=== PATIENT | male | born 1995 | race Caucasian/White ===

== ENCOUNTER 2023-10-27 19:26 | Inpatient (IN) | payer SELFPAY ==
[2023-10-27 19:27] VITALS: BP 139/70; PULSE 96; RESP 18; TEMP 36.4; O2SAT 100; BMI 23.2
[2023-10-27 20:27] VITALS: RESP 18
[2023-10-27 20:30] LABS: Absolute Lymphocyte Count 3.48 X10^3/uL (0.83-4.51); Absolute Neutrophil Count 5.4 X10^3/uL (2.0-7.7); Basophil# 0.04 X10^3/uL; Basophil% 0.4 % (0-1); Eosinophil# 0.09 X10^3/uL; Eosinophils% 0.9 % (0-5); Hematocrit 44.4 % (40-54); Hemoglobin 14.9 g/dL (13.0-16.5); Lymphocyte # 3.48 X10^3/ul (0.83-4.51); Lymphocyte % 36.2 % (19-41); Mean Corp Hgb Conc 33.6 g/dL (32-36); Mean Corpuscular Hgb 32.1 pg (27.0-32.0); Mean Corpuscular Volume 95.7 fL (80-94); Mean Platelet Vol. 9.4 fl (6.2-12.0); Monocyte# 0.55 X10^3/uL; Monocyte% 5.7 % (0-10); NRBC Flagged by Analyzer 0 % (0-5); Neutrophil # 5.39 X10^3/uL (2.7-7.7); Neutrophil % 56.2 % (47-70); Platelet Count 229 K/mm3 (150-450); RBC Distribution Width CV 12.4 % (11.6-14.6); RBC Distribution Width SD 43.7 fl (35.1-43.9); Red Blood Count 4.64 M/mm3 (4.6-6.2); White Blood Count 9.6 K/mm3 (4.4-11.0)
--- NOTE | 2023-10-27 20:36 | EDS_ITS ---
HPI History of Present Illness Chief Complaint: Substance Abuse Informant: patient and friend Narrative Narrative: 28-year-old male presenting to the emergency room requesting detox from alcohol. Patient states that he previously had addiction to opiates. He states that for several years he is replaced that addiction with developing addiction for alcohol. His main drink of choice is beer but will supplement this with shots of hard liquor as needed. He states that he be has begun to notice withdrawal symptoms towards the end of the workday. He drinks till he passes out at night. Personal relationships have become strained. He has no pending legal issues. He states that while in the active state of opiate addiction he had reported seizures but is not treated for epilepsy. He states that he is tired of drinking and the way it makes him feel in the problems that it causes and he is voluntarily coming to the hospital looking for alcohol detoxification. The last drink was about 1 hour ago. [facility] Medical History Heroin addiction Home Medications ?Medication ?Instructions ?Recorded ?Last Taken ?Type NK 10/27/23 Unknown History Allergy/AdvReac Type Severity Reaction Status Date / Time No Known Allergies Allergy Verified 10/27/23 19:27 Social History Smoking Status: Current every day smoker tobacco type: cigarettes ROS ROS ED ROS Narrative Generalized fatigue Constitutional Constitutional ED: Denies chills, fever(s) or weight loss Eyes Eyes: Denies change in vision or diplopia ENT ENT ED: Denies ear pain, rhinorrhea or sore throat Cardiovascular Cardiovascular: Denies chest pain, orthopnea, palpitations or racing heartbeat Respiratory/Chest Respiratory/Chest: Denies cough, dyspnea or orthopnea Gastrointestinal Gastrointestinal: Denies abdominal pain, diarrhea, nausea or vomiting Genitourinary Genitourinary ED: Denies dysuria, hematuria or urinary frequency Musculoskeletal Musculoskeletal: Denies arthralgias or myalgias Integumentary Denies abscess or rash Neurologic Neurologic: Denies headache(s) or weakness Psychiatric Psychiatric: Denies anxiety, depression, suicidal ideation or suicidal thoughts Endocrine Endocrinology: Denies polydipsia, polyphagia or polyuria Allergic/Immunologic Allergic/Immunologic ED: Denies mouth swelling, tongue swelling or urticaria EXAM Physical Exam Const Vital Signs: 10/27/23 19:27 10/27/23 20:27 Temperature 97.6 F L Temperature Source Temporal Pulse Rate 96 Respiratory Rate 18 18 Blood Pressure 139/70 H Blood Pressure Mean 93 Pulse Ox 100 Oxygen Delivery Method Room Air Room Air Positive well nourished and well developed Constitutional Narrative: Smell of alcohol from the patient mouth General Appearance ED: well developed HEENT Reports normocephalic, head/scalp atraumatic and moist mucous membranes Eyes PERRL and EOMs intact bilaterally Neck no lymphadenopathy, supple and no JVD Resp normal respiratory effort and clear to auscultation bilaterally Cardio regular rate, regular rhythm and no murmurs GI normal to inspection, nondistended, normoactive bowel sounds and non-tender Palpation: soft Back/Spine no CVA tenderness and normal ROM Extremity normal to inspection General Extremety ED: Negative for edema General Extremity: Negative for edema Neuro oriented x3 and CN's II-XII intact bilaterally Sensorium / Orientation: alert Motor Exam: strength 5/5 throughout Psych mental status grossly normal Mood & Affect: Negative for depressed or tearful Skin no rashes or lesions noted and no wounds MDM MDM MDM Narrative Medical decision making narrative: Differential diagnosis includes but not limited to electrolyte disturbance dehydration liver dysfunction coagulopathy alcohol intoxication alcohol abuse withdrawal/ If the patient is willing to agree to the terms of the ramp program I will speak with the hospitalist. Addiction labs were obtained. These were reviewed. White count 9.6 hemoglobin 14.9 platelet count 229. Alcohol level is 171. Normal lipase normal liver enzymes. History & Record Review Discussion w/independent historian: Patient Lab Data Attestation: I reviewed the patient's lab results. Labs: Laboratory Results - last 24 hr 10/27/23 19:57 WBC 9.6 RBC 4.64 Hgb 14.9 Hct 44.4 MCV 95.7 H MCH 32.1 H MCHC 33.6 RDW Std Deviation 43.7 RDW Coeff of Bossman 12.4 Plt Count 229 MPV 9.4 Immature Gran % (Auto) 0.600 Neut % (Auto) 56.2 Lymph % (Auto) 36.2 [place] % (Auto) 5.7 Eos % (Auto) 0.9 Baso % (Auto) 0.4 Absolute Neuts (auto) 5.4 Absolute Lymphs (auto) 3.48 Nucleated RBC % 0 PT 13.1 INR 1.0 APTT 27.5 Sodium 143 Potassium 3.6 Chloride 111 H Carbon Dioxide 28.0 Anion Gap 4 L BUN 5 L Creatinine 0.73 Estim Creat Clear Calc 149.31 Est GFR (MDRD) Af Amer 162 Est GFR (MDRD) Non-Af 134 BUN/Creatinine Ratio 6.8 L Glucose 74 Calcium 9.0 Magnesium 2.4 Total Bilirubin 0.50 Direct Bilirubin 0.14 AST 29 ALT 48 Alkaline Phosphatase 70 Total Protein 6.9 Albumin 3.7 Globulin 3.2 Lipase 25 Ethyl Alcohol 171.0 Management Discussion w/another healthcare provider: Hospitalist Discharge Plan Dx/Rx/DC Orders Clinical Impression: Alcohol abuse, Cigarette smoker Disposition Disposition: Acute Care Hospital [facility]
[2023-10-27 20:38] LABS: Prothrombin Time (Protime)PT. 13.1 SECONDS (11.7-14.9)
[2023-10-27 20:39] LABS: Partial Thromboplast Time 27.5 Seconds (24.1-36.2)
[2023-10-27 20:46] LABS: AST(SGOT) 29 U/L (15-37); Alanine Aminotransfer ALT/SGPT 48 U/L (16-61); Albumin, Serum 3.7 g/dL (3.2-5.0); Alkaline Phosphatase 70 U/L (45-117); Anion Gap 4 (5-15); BUN 5 mg/dL (7-18); BUN/Creat Ratio 6.8 RATIO (10-20); Bilirubin, Direct 0.14 mg/dL (0.00-0.30); Chloride 111 mmol/L (98-107); Creatinine, Serum 0.73 mg/dL (0.70-1.30); EST Glomerular Filtration Rate 134 mL/min (>60); Est Glom Filt Rate - Afr Amer 162 mL/min (>60); Estimated Creatinine Clearance 149.31 ml/min; Globulin 3.2 g/dL (2.2-4.2); Glucose 74 mg/dL (74-106); Lipase 25 U/L (13-75); Magnesium 2.4 mg/dL (1.6-2.6); Potassium 3.6 mmol/L (3.5-5.1); Protein, Total 6.9 g/dL (6.4-8.2); Sodium Level 143 mmol/L (136-145)
--- NOTE | 2023-10-27 20:57 | PCM.HP.STD ---
[facility] - General General Date of Admission: 10/27/23 Date of Service: 10/27/23 Chief Complaint: Wants Help with EtOH Detox. HPI Narrative VISH MAX, is a 28 M with a past medical history of Tobacco Abuse, history of Heroin Abuse (2015); with previous seizure activity attributed to severe opiate withdrawal a few years ago with subsequent transition to Chronic EtOH Abuse; with patient admitting to drinking ~12 beers in addition to multiple shots of hard liquor daily who presents to [facility] ER complaining of wanting help with EtOH Detox. Mr. Max reports his symptoms began approximately one hour prior to admission after he took his last drink. He went on to state that he has begun to notice withdrawal symptoms at the end of the workday as he has routinely been drinking until he passes out every night. He also admits that this has strained his personal relationships but he denies active legal trouble. He states he is tired of drinking and the way it makes him feel so he came in to seek help to quit with his significant other supportively at the bedside. He denies associated fever, chills, nausea, vomiting, diarrhea, chest pain or SOB but he does admit to fatigue and malaise. In the ER he was noted to have MARY ALICE of 171 mg/dL present on admission consistent with Acute EtOH Intoxication with impending EtOH Withdrawal in the setting of Chronic EtOH Abuse and he was then admitted to the general medical floor for treatment under the EtOH detox protocol for a stay that is expected to extend beyond 2 midnights. [facility] Medical History (Updated 10/28/23 @ 02:[address] Santosh Valenzuela DO) Heroin addiction Home Medications ?Medication ?Instructions ?Recorded ?Last Taken ?Type NK 10/27/23 Unknown History Allergy/AdvReac Type Severity Reaction Status Date / Time No Known Allergies Allergy Verified 10/27/23 19:27 Social History Smoking Status: Current every day smoker tobacco type: cigarettes ROS ROS Narrative Review of systems: Constitutional: Patient denies fever, chills or weight loss. Eyes: Patient denies changes in vision or discharge from eyes. ENT: Patient denies runny nose, sore throat or ear pain. CV: Patient denies chest pain, palpitations or heart racing. Resp: Patient denies SOB or cough. GI: Patient denies abdominal pain, nausea, vomiting, diarrhea or constipation. : Patient denies dysuria, hematuria or urinary hesitancy. MSK: Patient denies arthralgias or myalgias. Skin: Patient denies rash, abscess or jaundice. Psych: Patient denies symptoms of uncontrolled depression or anxiety. Neuro: Patient denies headache, paresthesias or focal neurologic weakness. Allergy: Patient denies lip swelling, tongue swelling or urticaria. Endocrine: Patient denies polyuria, polydipsia or polyphagia. Hematology: Patient denies easy bleeding or easy bruisability. 14 point ROS otherwise negative except for positives noted above in HPI. Vital Signs Vital Signs Vital Signs: 10/27/23 19:27 10/27/23 20:27 Temperature 97.6 F L Temperature Source Temporal Pulse Rate 96 Respiratory Rate 18 18 Blood Pressure 139/70 H Blood Pressure Mean 93 Pulse Ox 100 Oxygen Delivery Method Room Air Room Air Weight Weight: 157 lb 3.033 oz Body Mass Index (BMI) 23.2 Physical Exam Const alert, oriented x3, no apparent distress, average body habitus and healthy appearing General Appearance: cooperative HEENT normocephalic, head/scalp atraumatic, hearing grossly normal bilaterally and moist oral mucous membranes Eyes PERRL and EOMs intact bilaterally Eyes Narrative: Sclerae mildly injected. Neck no lymphadenopathy and supple Resp normal respiratory effort, no retractions, no use of accessory muscles and clear to auscultation bilaterally Cardio regular rate and regular rhythm GI normal to inspection, nondistended, normoactive bowel sounds, soft to palpation, non-tender and non-distended Extremity normal to inspection, full ROM and no clubbing, cyanosis or edema Skin Skin Narrative: Patient has no evidence of jaundice, rash or abscess. Neuro oriented x3, CN's II-XII intact bilaterally, moves all extremities and no focal motor deficits Sensorium / Orientation: awake, alert, oriented to person, oriented to place and oriented to time Speech: speech normal Psych affect normal Results Medical Records Data Attestation: I reviewed the patient's medical records Lab / Micro Data Attestation: I reviewed the patient's lab results. 10/27/23 19:57 10/27/23 19:57 Labs: Laboratory Results - last 24 hr 10/27/23 19:57: WBC 9.6, RBC 4.64, Hgb 14.9, Hct 44.4, MCV 95.7 H, MCH 32.1 H, MCHC 33.6, RDW Std Deviation 43.7, RDW Coeff of Bossman 12.4, Plt Count 229, MPV 9.4, Immature Gran % (Auto) 0.600, Neut % (Auto) 56.2, Lymph % (Auto) 36.2, [place] % (Auto) 5.7, Eos % (Auto) 0.9, Baso % (Auto) 0.4, Absolute Neuts (auto) 5.4, Absolute Lymphs (auto) 3.48, Nucleated RBC % 0, PT 13.1, INR 1.0, APTT 27.5, Sodium 143, Potassium 3.6, Chloride 111 H, Carbon Dioxide 28.0, Anion Gap 4 L, BUN 5 L, Creatinine 0.73, Estim Creat Clear Calc 149.31, Est GFR (MDRD) Af Amer 162, Est GFR (MDRD) Non-Af 134, BUN/Creatinine Ratio 6.8 L, Glucose 74, Calcium 9.0, Magnesium 2.4, Total Bilirubin 0.50, Direct Bilirubin 0.14, AST 29, ALT 48, Alkaline Phosphatase 70, Total Protein 6.9, Albumin 3.7, Globulin 3.2, Lipase 25, Ethyl Alcohol 171.0 Assessment & Plan Assessment/Plan (1) Alcohol intoxication: QUALIFIERS: Complication of substance-induced condition: uncomplicated Qualified Code(s): F10.920 - Alcohol use, unspecified with intoxication, uncomplicated (2) Chronic alcohol abuse: (3) Tobacco abuse: (4) Heroin addiction: PLAN: Plan 1. MARY ALICE of 171 mg/dL present on admission consistent with Acute EtOH Intoxication with impending EtOH Withdrawal in the setting of Chronic EtOH Abuse; with patient admitting to drinking ~12 beers in addition to multiple shots of hard liquor daily - Admit to general medical floor for treatment under the EtOH detoxification protocol primarily consisting of Phenobarbital taper. EtOH Cessation was very strongly encouraged. Finally, we will consult Case Management and RAMP personnel to see this patient on-rounds in the AM to help him craft and execute a plan for sobriety with help appreciated in advance. 2. Tobacco Abuse complicating #1 - Tobacco Cessation will be strongly encouraged with Nicotine patch offered to control cravings. 3. History of Heroin Abuse (2014); with previous seizure activity attributed to severe opiate withdrawal a few years ago - Noted. Check [place] UDS to confirm claims of cessation. 4. DVT prophylaxis - Lovenox 40 mg sq daily plus patient up ad leoncio. Total time: Approximately 55 minutes. Charges/Coding Visit Charges Inpatient E&M: 12786 Init Hosp L2
[2023-10-27 21:00] VITALS: BP 114/62; PULSE 77; RESP 18; TEMP 36.6; O2SAT 100
[2023-10-27 21:51] VITALS: BP 124/59; PULSE 73; RESP 16; TEMP 36.6; O2SAT 99; BMI 23.0
[2023-10-27] MEDS: 0.9% Saline Lock 10 ML Syringe IV (22:04)
[2023-10-27] MEDS: Phenobarbital 32.4 MG Tablet 64.8 MG PO (22:06)
[2023-10-27] MEDS: Lactated Ringers 1,000 ML 125 ML IV (22:06)
[2023-10-27] MEDS: MELATONIN 3 MG TABLET PO (22:11)
[2023-10-28 02:40] VITALS: BP 126/68; PULSE 71; RESP 14; TEMP 36.8; O2SAT 98
[2023-10-28] MEDS: Phenobarbital 32.4 MG Tablet 64.8 MG PO ×6 (02:42→22:20)
[2023-10-28 06:33] LABS: Absolute Lymphocyte Count 3.08 X10^3/uL (0.83-4.51); Absolute Neutrophil Count 3.3 X10^3/uL (2.0-7.7); Basophil# 0.04 X10^3/uL; Basophil% 0.6 % (0-1); Eosinophil# 0.17 X10^3/uL; Eosinophils% 2.4 % (0-5); Hematocrit 41.8 % (40-54); Hemoglobin 13.7 g/dL (13.0-16.5); Lymphocyte # 3.08 X10^3/ul (0.83-4.51); Lymphocyte % 43.7 % (19-41); Mean Corp Hgb Conc 32.8 g/dL (32-36); Mean Corpuscular Hgb 31.8 pg (27.0-32.0); Mean Platelet Vol. 9.7 fl (6.2-12.0); Monocyte# 0.47 X10^3/uL; Monocyte% 6.7 % (0-10); NRBC Flagged by Analyzer 0 % (0-5); Neutrophil # 3.25 X10^3/uL (2.7-7.7); Platelet Count 182 K/mm3 (150-450); RBC Distribution Width CV 12.4 % (11.6-14.6); RBC Distribution Width SD 44.3 fl (35.1-43.9); Red Blood Count 4.31 M/mm3 (4.6-6.2); White Blood Count 7.1 K/mm3 (4.4-11.0)
[2023-10-28 06:54] LABS: ALB/GLOB Ratio 1.2 RATIO (0.9-2.4); AST(SGOT) 23 U/L (15-37); Alanine Aminotransfer ALT/SGPT 37 U/L (16-61); Albumin, Serum 3.1 g/dL (3.2-5.0); Alkaline Phosphatase 53 U/L (45-117); Anion Gap 6 (5-15); BUN 9 mg/dL (7-18); BUN/Creat Ratio 14.9 RATIO (10-20); Calcium,Total 8.5 mg/dL (8.5-10.1); Chloride 110 mmol/L (98-107); EST Glomerular Filtration Rate 168 mL/min (>60); Est Glom Filt Rate - Afr Amer 203 mL/min (>60); Estimated Creatinine Clearance 181.66 ml/min; Globulin 2.6 g/dL (2.2-4.2); Glucose 98 mg/dL (74-106); Potassium 3.7 mmol/L (3.5-5.1); Protein, Total 5.7 g/dL (6.4-8.2); Sodium Level 142 mmol/L (136-145)
[2023-10-28] MEDS: Enoxaparin 40 MG/0.4 ML Syringe SC (07:52)
[2023-10-28] MEDS: Folic Acid 1 MG Tablet PO (07:52)
[2023-10-28] MEDS: Ondansetron 8 MG Tablet PO (07:53)
[2023-10-28] MEDS: Thiamine Hydrochloride 100 MG Tablet PO (07:53)
[2023-10-28 08:00] VITALS: BP 115/63; PULSE 63; RESP 16; TEMP 36.6; O2SAT 99
[2023-10-28 08:14] LABS: Alcohol, Blood (Medical)-Serum < 3.0 mg/dL
--- NOTE | 2023-10-28 10:15 | PN.HOSP_ITS ---
Subjective Subjective Doing well, a little anxious. CIWA of 0 Objective Data Objective Data Vital Signs: Vital Signs Temp Pulse Resp BP Pulse Ox O2 Del Method 98 F 63 16 115/63 99 Room Air 10/28/23 08:00 10/28/23 08:00 10/28/23 08:00 10/28/23 08:00 10/28/23 08:00 10/28/23 08:00 Oxygen Delivery Method Room Air Weight: 156 lb 1.396 oz Body Mass Index (BMI) 23.0 Intake & Output: Intake and Output for Last 24 Hours 10/27/23 10/28/23 10/29/23 03:59 03:59 03:59 Intake Total 222 / 222 1350 / 1350 Balance 222 / 222 1350 / 1350 Lab / Micro Data 10/28/23 05:18 10/28/23 05:18 Labs: Laboratory Results - last 24 hr 10/27/23 19:57: WBC 9.6, RBC 4.64, Hgb 14.9, Hct 44.4, MCV 95.7 H, MCH 32.1 H, MCHC 33.6, RDW Std Deviation 43.7, RDW Coeff of Bossman 12.4, Plt Count 229, MPV 9.4, Immature Gran % (Auto) 0.600, Neut % (Auto) 56.2, Lymph % (Auto) 36.2, [place] % (Auto) 5.7, Eos % (Auto) 0.9, Baso % (Auto) 0.4, Absolute Neuts (auto) 5.4, Absolute Lymphs (auto) 3.48, Nucleated RBC % 0, PT 13.1, INR 1.0, APTT 27.5, Sodium 143, Potassium 3.6, Chloride 111 H, Carbon Dioxide 28.0, Anion Gap 4 L, B UN 5 L, Creatinine 0.73, Estim Creat Clear Calc 149.31, Est GFR (MDRD) Af Amer 162, Est GFR (MDRD) Non-Af 134, BUN/Creatinine Ratio 6.8 L, Glucose 74, Calcium 9.0, Magnesium 2.4, Total Bilirubin 0.50, Direct Bilirubin 0.14, AST 29, ALT 48, Alkaline Phosphatase 70, Total Protein 6.9, Albumin 3.7, Globulin 3.2, Lipase 25, Ethyl Alcohol 171.0 10/28/23 05:18: WBC 7.1, RBC 4.31 L, Hgb 13.7, Hct 41.8, MCV 97.0 H, MCH 31.8, MCHC 32.8, RDW Std Deviation 44.3 H, RDW Coeff of Bossman 12.4, Plt Count 182, MPV 9.7, Immature Gran % (Auto) 0.600, Neut % (Auto) 46.0 L, Lymph % (Auto) 43.7 H, [place] % (Auto) 6.7, Eos % (Auto) 2.4, Baso % (Auto) 0.6, Absolute Neuts (auto) 3.3, Absolute Lymphs (auto) 3.08, Nucleated RBC % 0, Sodium 142, Potassium 3.7, Chloride 110 H, Carbon Dioxide 26.0, Anion Gap 6, BUN 9, Creatinine 0.60 L, Estim Creat Clear Calc 181.66, Est GFR (MDRD) Af Amer 203, Est GFR (MDRD) Non-Af 168, BUN/Creatinine Ratio 14.9, Glucose 98, Calcium 8.5, Total Bilirubin 0.40, AST 23, ALT 37, Alkaline Phosphatase 53, Total Protein 5.7 L, Albumin 3.1 L, Globulin 2.6, Albumin/Globulin Ratio 1.2 10/28/23 07:25: Ethyl Alcohol < 3.0 Physical Exam Const alert, oriented x3 and no apparent distress Constitutional Narrative: anxious General Appearance: cooperative HEENT normocephalic Mouth: dry mucous membranes Eyes PERRL, EOMs intact bilaterally and conjunctivae normal Neck supple and no JVD Resp normal respiratory effort, no retractions, no use of accessory muscles and clear to auscultation bilaterally Auscultation: Negative for crackles, rales, rhonchi or wheezes Cardio regular rate, regular rhythm, S1 normal heart sound, S2 normal heart sound and no murmurs GI soft to palpation, non-tender and non-distended; Negative for hepatosplenomegaly Extremity no clubbing, cyanosis or edema Skin no rashes or lesions noted Neuro no focal motor deficits and no sensory deficits noted Psych affect normal Appearance: appropriate Assessment & Plan Assessment/Plan (1) Alcohol intoxication: QUALIFIERS: Complication of substance-induced condition: u ncomplicated Qualified Code(s): F10.920 - Alcohol use, unspecified with intoxication, uncomplicated (2) Chronic alcohol abuse: (3) Tobacco abuse: (4) Heroin addiction: PLAN: Plan 1. EtOH withdrawal/Tobacco abuse - has a history of heroin abuse with last use in 2014, started drinking in 2018 - Continued with etoh withdrawal protocol - f/u with 180 for discharge planning, lives in [place] - Discussed tobacco cessation c/w nicotine patch DVT: Ambulation Charges/Coding Visit Charges Inpatient E&M: 81340 Subs Hosp L2
--- NOTE | 2023-10-28 10:35 | CASEMGMT ---
Social Work- SW met with pt to discuss resources and supports. Pt is admitted for detox and reports an extensive hx of substance use since the age of 17. Pt reports that he has three felonies related to substance use when he was 17 and that he has been a part of multiple IOP & court-ordered programs. Pt reports that he was sober for 3 years and has resumed using for awhile. Pt reports he was a part of AA prior to maintain his sobriety. Pt reports he has held the same job for 7 years and his boss is a member of AA and has maintained sobriety for 18 years and is a support to pt. Pt plans to return to work following d/c. Pt reports that he has a good support system with healthy relationships and sober peers. Pt reports that he does not feel he needs any mental health supports. Pt is receptive to speaking with 180 and is receptive to information for PCP and prescriptions. SW provided information on [facility] [employer], [facility], [facility]ER pt assistance, and prescription assistance programs online and in the community. Heena met with pt prior to SW visit. Pt denies any other needs at this time. SW to remain available to follow. TORRES Wilson
--- NOTE | 2023-10-28 12:27 | ADDICTION ---
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 PT A+Ox4 and participated actively. All assessments completed. PT plans to f/u with [facility] in [place] for outpatient treatment services. PT did not indicate a need for transportation post d/c from [facility].
[2023-10-28] MEDS: hydrOXYzine PAM 25 MG Capsule 50 MG PO ×2 (12:31→19:38)
--- NOTE | 2023-10-28 12:43 | PCM.PN.HOSP ---
Reason for Visit Reason for Visit: Diagnoses Alcohol abuse, uncomplicated (10/27/23) Alcohol use, unspecified with intoxication, uncomplicated (10/27/23) Opioid dependence, uncomplicated (10/27/23) Tobacco use (10/27/23) Subjective Subjective No events overnight. Reports feeling mildly anxious which is his baseline. Mild nausea, decreased appetite. Denies agitation, tactile, auditory, or visual disturbances, diaphoresis, tremors, and vomiting. Has not seen 180 @ this time. Reports strong support system at home consisting of family & friends. Eager for alcohol abstinence. Denies pain, sob. Objective Data Objective Data Vital Signs: Vital Signs Temp Pulse Resp BP Pulse Ox O2 Del Method 98 F 63 16 115/63 99 Room Air 10/28/23 08:00 10/28/23 08:00 10/28/23 08:00 10/28/23 08:00 10/28/23 08:00 10/28/23 08:00 Oxygen Delivery Method Room Air Weight: 70.8 kg Body Mass Index (BMI) 23.0 Intake & Output: Intake and Output for Last 24 Hours 10/26/23 10/27/23 10/28/23 23:59 23:59 23:59 Intake Total 1572 / 1572 Balance 1572 / 1572 Lab / Micro Data Attestation: I reviewed the patient's lab results. Lab results narrative: CBC, BMP unremarkable. ETOH decreased from 171 on admission to <3.0 today. 10/28/23 05:18 10/28/23 05:18 Labs: Laboratory Results - last 24 hr 10/27/23 19:57: WBC 9.6, RBC 4.64, Hgb 14.9, Hct 44.4, MCV 95.7 H, MCH 32.1 H, MCHC 33.6, RDW Std Deviation 43.7, RDW Coeff of Bossman 12.4, Plt Count 229, MPV 9.4, Immature Gran % (Auto) 0.600, Neut % (Auto) 56.2, Lymph % (Auto) 36.2, [place] % (Auto) 5.7, Eos % (Auto) 0.9, Baso % (Auto) 0.4, Absolute Neuts (auto) 5.4, Absolute Lymphs (auto) 3.48, Nucleated RBC % 0, PT 13.1, INR 1.0, APTT 27.5, Sodium 143, Potassium 3.6, Chloride 111 H, Carbon Dioxide 28.0, Anion Gap 4 L, BUN 5 L, Creatinine 0.73, Estim Creat Clear Calc 149.31, Est GFR (MDRD) Af Amer 162, Est GFR (MDRD) Non-Af 134, BUN/Creatinine Ratio 6.8 L, Glucose 74, Calcium 9.0, Magnesium 2.4, Total Bilirubin 0.50, Direct Bilirubin 0.14, AST 29, ALT 48, Alkaline Phosphatase 70, Total Protein 6.9, Albumin 3.7, Globulin 3.2, Lipase 25, Ethyl Alcohol 171.0 10/28/23 05:18: WBC 7.1, RBC 4.31 L, Hgb 13.7, Hct 41.8, MCV 97.0 H, MCH 31.8, MCHC 32.8, RDW Std Deviation 44.3 H, RDW Coeff of Bossman 12.4, Plt Count 182, MPV 9.7, Immature Gran % (Auto) 0.600, Neut % (Auto) 46.0 L, Lymph % (Auto) 43.7 H, [place] % (Auto) 6.7, Eos % (Auto) 2.4, Baso % (Auto) 0.6, Absolute Neuts (auto) 3.3, Absolute Lymphs (auto) 3.08, Nucleated RBC % 0, Sodium 142, Potassium 3.7, Chloride 110 H, Carbon Dioxide 26.0, Anion Gap 6, BUN 9, Creatinine 0.60 L, Estim Creat Clear Calc 181.66, Est GFR (MDRD) Af Amer 203, Est GFR (MDRD) Non-Af 168, BUN/Creatinine Ratio 14.9, Glucose 98, Calcium 8.5, Total Bilirubin 0.40, AST 23, ALT 37, Alkaline Phosphatase 53, Total Protein 5.7 L, Albumin 3.1 L, Globulin 2.6, Albumin/Globulin Ratio 1.2 10/28/23 07:25: Ethyl Alcohol < 3.0 Physical Exam Narrative Pt sleeping, awakens easily. Alert, mildy anxious, coooperative, answers questions appropriately, well kept. Const alert, oriented x3, no apparent distress, average body habitus, no limitations, healthy appearing and well nourished Constitutional Narrative: Mildy anxious. General Appearance: cooperative, comfortable and well kempt HEENT normocephalic, hearing grossly normal bilaterally, external ears normal and external nose normal Eyes PERRL and EOMs intact bilaterally General Eye: normal appearance of both eyes Neck full ROM and supple General: trachea midline Chest inspection of chest normal Resp normal respiratory effort and normal air movement Auscultation: clear to auscultation bilaterally; Negative for rales, rhonchi or wheezes Cardio regular rate, regular rhythm, S1 normal heart sound, S2 normal heart sound, no murmurs, no rub, no gallops and peripheral pulses 2+ throughout GI normal to inspection, nondistended, normoactive bowel sounds, soft to palpation and non-tender Back/Spine normal to inspection Extremity normal to inspection, full ROM and normal capillary refill Skin no rashes or lesions noted, no wounds and skin turgor normal Neuro oriented x3, moves all extremities, no focal motor deficits and no sensory deficits noted [place] Coma Scale: document GCS findings Spontaneous Obeys Commands Oriented 15 Psych mental status grossly normal, thought process normal, cooperative, affect normal, speech normal, activity/motor behavior normal and denies hallucinations Attitude: calm and engaged Activity / Motor Behavior: appropriate eye contact Speech: normal speech Thought Process: normal thought process Thought Content: normal thought content Attention / Concentration: attention grossly intact Memory / Cognition: memory grossly intact Insight: insight good Assessment & Plan Assessment/Plan (1) Chronic alcohol abuse: PLAN: -Last use 1 hr [employer] in ED. Drinks approx 12 beers & multiple shots of hard liquor throughout the day x 5 years. Reports withdrawal sx near end of work day. -Concern for etoh withdrawal. -Mild anxiety & nausea today. Suspect d/t alcohol withdrawal. Continue w/prn gabapentin, hydroxyzine, and ondansetron. -Continue to monitor for withdrawal sx via CIWA scale & alcohol withdrawal protocol. -Continue thiamine & folic acid for prevention of Wernicke encephalopathy. -180 to see while inpatient. Follow recommendations for discharge. (2) Alcohol intoxication: QUALIFIERS: Complication of substance-induced condition: uncomplicated Qualified Code(s): F10.920 - Alcohol use, unspecified with intoxication, uncomplicated PLAN: -Resolved. ETOH decreased from 171 on admission to <3.0 today. (3) Seizure: PLAN: -Pt reports seizures initially began when withdrawing from opiates. Continues to have seizures w/last sz 07/2023. Reports sz occur in am generally after a long night of drinking. Reports he can feel them coming on. Suspect r/t etoh withdrawal. -Not on home anti-epileptics. -Continue sz precautions. (4) Tobacco abuse: PLAN: -Smokes 1 1/2 - 2 ppd x 15 yrs. -Doing well w/nicotine patch; continue. -Encourage smoking cessation. (5) Heroin addiction: PLAN: -Hx of opiate addiction. Used pills [id number]. Heroin [id number]; initially inhaled, then used IV. -Received treatment @ [facility]. -No longer uses opiates. PLAN: Plan DVT prophylaxis -D/C lovenox as pt is able to ambulate without difficulty.
[2023-10-28 14:00] VITALS: BP 107/61; PULSE 80; RESP 16; TEMP 36.6; O2SAT 99
--- NOTE | 2023-10-28 14:12 | CHAPLAIN ---
Type of Pastoral Visit _x__ Initial Visit ___ Follow-up Visit ___ On-call Visit ___ General Patient Visit ___ Spiritual Assessment ___ Family Conference ___ Bereavement ___ Rapid Response ___ Code Blue ___ Other (describe below) Pastoral Care Referral From _x__ Patient ___ Family ___ Nurse ___ Physician ___ Nurse Practical ___ Graphic Design Teacher ___ Other (describe below) Sacrament/Intervention _x__ Active listening ___ Anointing ___ Jain ___ Bereavement ___ Communion _x__ Elena exploration ___ _x__ Life review _x__ Prayer ___ Reconciliation ___ Sacrament of Sick _x__ Supportive presence ___ Wedding ___ Other (describe below) Pastoral Comments patient is awake but resting quietly; pt describes his condition as 'trying to get through this part, and not being as bad as I thought it would be; pt is offered presence or time to rest but he agrees that a visit would be fine; pt is open about his 'return' to the alcohol and addiction even after almost three years of sobriety; pt states he has family support from his mother, grandmother, and sister along with some friends from and the Rehab he was in before; pt speaks of working and the things he likes to do; pt wants to return to that lifestyle per his statements; pt relates any episcopal interest due mostly out of the experience with AA; pt states that he would be open to more spiritual things in his life if that were to get him better and keeping him sober; pt welcomes a Bible to read and a prayer for support today; pt is expressive of thanks for the time given to meet with him and support him
[2023-10-28 19:39] VITALS: BP 119/64; PULSE 66; RESP 16; TEMP 36.7; O2SAT 100
[2023-10-28 22:35] LABS: Amphetamine Urine VISTA NEGATIVE (<1000 ng/mL); Barbiturate Urine VISTA POSITIVE (< 200 ng/mL); Benzodiazepine Urine VISTA NEGATIVE (< 200 ng/mL); Cocaine Urine VISTA NEGATIVE (< 300 ng/mL); Ecstacy Urine VISTA NEGATIVE (< 500 ng/mL); Methadone Urine VISTA NEGATIVE (< 300 ng/mL); PCP Urine VISTA NEGATIVE (< 25 ng/mL); THC Urine VISTA NEGATIVE (< 50 ng/mL); Vista UDS pH Range 6
[2023-10-29 02:10] VITALS: BP 107/68; PULSE 80; RESP 16; TEMP 36.4; O2SAT 100
[2023-10-29] MEDS: Phenobarbital 32.4 MG Tablet 64.8 MG PO ×6 (02:14→21:36)
[2023-10-29] MEDS: hydrOXYzine PAM 25 MG Capsule 50 MG PO (05:50)
[2023-10-29 05:52] VITALS: BP 112/64; PULSE 65; RESP 16; TEMP 36.4; O2SAT 99
--- NOTE | 2023-10-29 08:56 | PN.HOSP_ITS ---
Subjective Subjective Doing well, no issues overnight. CIWA score 1 Objective Data Objective Data Vital Signs: Vital Signs Temp Pulse Resp BP Pulse Ox O2 Del Method 97.6 F L 65 16 112/64 99 Room Air 10/29/23 05:52 10/29/23 05:52 10/29/23 05:52 10/29/23 05:52 10/29/23 05:52 10/29/23 05:52 Oxygen Delivery Method Room Air Weight: 156 lb 1.396 oz Body Mass Index (BMI) 23.0 Intake & Output: Intake and Output for Last 24 Hours 10/28/23 10/29/23 10/30/23 03:59 03:59 03:59 Intake Total 222 / 222 2150 / 2150 400 / 400 Balance 222 / 222 2150 / 2150 400 / 400 Lab / Micro Data 10/28/23 05:18 10/28/23 05:18 Labs: Laboratory Results - last 24 hr 10/28/23 22:02: Urine Opiates Screen NEGATIVE, Urine Methadone Screen NEGATIVE, Ur Barbiturates Screen POSITIVE H, Ur Phencyclidine Scrn NEGATIVE, Ur Amphetamines Screen NEGATIVE, MDMA (Ecstasy) Screen NEGATIVE, U Benzodiazepines Scrn NEGATIVE, Urine Cocaine Screen NEGATIVE, U Cannabinoids Screen NEGATIVE, Ur Drug Screen Comment Physical Exam Narrative General: Alert, Oriented x3, Cooperative, No apparent distress HEENT: Atraumatic, PERRLA, EOMI, Normocephalic Oral: Moist Mucosa Neck: Supple, No JVD Lungs: Clear to auscultation, Normal air movement, No rhonchi, No wheeze, No rales Cardiovascular: Regular rate, Regular Rhythm, Normal S1, Normal S2, No murmurs Abdomen: Soft, Non Tender, Non-Distended, No Hepato-splenomegaly Extremities: No edema, Capillary Refill Less than 3 Seconds Skin: No rashes, No breakdown Musculoskeletal: No Tenderness to Palpation of Joints or Extremities Neurological: No focal neurological deficits, Motor Exam 5/5 strength throughout, Sensory exam intact to light touch and pain Psych/Mental Status: Normal Affect, Appropriate Assessment & Plan Assessment/Plan (1) Alcohol intoxication: QUALIFIERS: Complication of substance-induced condition: u ncomplicated Qualified Code(s): F10.920 - Alcohol use, unspecified with intoxication, uncomplicated (2) Chronic alcohol abuse: (3) Tobacco abuse: (4) Heroin addiction: PLAN: Plan 1. EtOH withdrawal/Tobacco abuse - has a history of heroin abuse with last use in 2014, started drinking in 2019 - Continued with etoh withdrawal protocol - f/u with 180 for discharge planning, lives in [place] - Discussed tobacco cessation c/w nicotine patch DVT: Ambulation Charges/Coding Visit Charges Inpatient E&M: 62706 Subs Hosp L2
[2023-10-29 09:46] VITALS: BP 112/57; PULSE 70; RESP 18; TEMP 36.6; O2SAT 98
[2023-10-29] MEDS: Thiamine Hydrochloride 100 MG Tablet PO (09:48)
[2023-10-29] MEDS: Folic Acid 1 MG Tablet PO (09:48)
[2023-10-29 14:10] VITALS: BP 118/69; PULSE 70; RESP 18; TEMP 36.6; O2SAT 99
[2023-10-29 21:33] VITALS: BP 120/59; PULSE 61; RESP 16; TEMP 36.5; O2SAT 98
[2023-10-30] MEDS: Phenobarbital 32.4 MG Tablet 64.8 MG PO ×2 (02:07→06:32)
[2023-10-30 02:15] VITALS: BP 106/52; PULSE 61; RESP 16; TEMP 36.5; O2SAT 97
[2023-10-30 08:00] VITALS: BP 121/66; PULSE 64; RESP 18; TEMP 36.7; O2SAT 96
[2023-10-30 08:47] VITALS: BP 121/66; PULSE 64; RESP 18; TEMP 36.7; O2SAT 100
--- NOTE | 2023-10-30 09:35 | DCINST_ITS ---
Discharge Instructions Diet Discharge Diet: No restrictions Activity Discharge Activity: Return to Normal Activity Dressing / Incision Call your doctor if you observe: Fever of 101 or Higher, Shortness of breath, Dizziness, Fainting spells, Swelling in the ankles, Chest pain and Increased palpitations (irregular heartbeat) Follow Up Care Test Results: Test results from this visit will be discussed in further detail at your follow- up appointment, if applicable. Discharge Plan Admission Admit Date/Time: 10/27/23 21:10 Attending Provider: Neri Kyle Primary Care Provider: Care Physician,No Primary Consulting Providers: Santosh Valenzuela Discharge Orders/Prescriptions Prescriptions: No Action NK Referrals / Follow Up: Care Physician,No Primary [Primary Care Provider] - Disposition Disposition (needs filled in before D/C Order can be placed): Home, Self Care
--- NOTE | 2023-10-30 09:35 | PCM.DC.SUM ---
Providers Date of Admission: 10/27/23 Primary Care Physician: No Primary Care Phys Reason For Visit: IMPENDING ETOH WITHDRAWL Diagnosis Discharge Diagnosis (1) Alcohol intoxication: Status: Acute Code(s): F10.929 - Alcohol use, unspecified with intoxication, unspecified Qualifiers: Complication of substance-induced condition: uncomplicated Qualified Code(s): F10.920 - Alcohol use, unspecified with intoxication, uncomplicated (2) Chronic alcohol abuse: Status: Chronic Code(s): F10.10 - Alcohol abuse, uncomplicated (3) Tobacco abuse: Status: Acute Code(s): Z72.0 - Tobacco use (4) Heroin addiction: Status: Acute Code(s): F11.20 - Opioid dependence, uncomplicated Medications at Discharge Home Medications NK 10/27/23 Hospital Course Operations None Procedures None Summary of Care Provided Minutes Spent on Discharge: 33 Hospital Course: Per HPI: VISH MAX, is a 28 M with a past medical history of Tobacco Abuse, history of Heroin Abuse (2015); with previous seizure activity attributed to severe opiate withdrawal a few years ago with subsequent transition to Chronic EtOH Abuse; with patient admitting to drinking ~12 beers in addition to multiple shots of hard liquor daily who presents to [facility] ER complaining of wanting help with EtOH Detox. Mr. Max reports his symptoms began approximately one hour prior to admission after he took his last drink. He went on to state that he has begun to notice withdrawal symptoms at the end of the workday as he has routinely been drinking until he passes out every night. He also admits that this has strained his personal relationships but he denies active legal trouble. He states he is tired of drinking and the way it makes him feel so he came in to seek help to quit with his significant other supportively at the bedside. He denies associated fever, chills, nausea, vomiting, diarrhea, chest pain or SOB but he does admit to fatigue and malaise. In the ER he was noted to have MARY ALICE of 171 mg/dL present on admission consistent with Acute EtOH Intoxication with impending EtOH Withdrawal in the setting of Chronic EtOH Abuse and he was then admitted to the general medical floor for treatment under the EtOH detox protocol for a stay that is expected to extend beyond 2 midnights. Hospital Course: 1. Alcohol withdrawal/tobacco abuse?28-year-old male presented to the hospital requesting detox from alcohol. Used to be a heroin addict but his last use was in 2014 and he started drinking in 2019. He will follow-up with the rehab on the outpatient side in [place]. I discussed with him the possibility for discharge today versus staying until tomorrow when he is able to make an appointment however he feels like he should be able to go today and he expressed understanding of the risk benefits of going home today. Physical Exam Narrative General: Alert, Oriented x3, Cooperative, No apparent distress HEENT: Atraumatic, PERRLA, EOMI, Normocephalic Oral: Moist Mucosa Neck: Supple, No JVD Lungs: Clear to auscultation, Normal air movement, No rhonchi, No wheeze, No rales Cardiovascular: Regular rate, Regular Rhythm, Normal S1, Normal S2, No murmurs Abdomen: Soft, Non Tender, Non-Distended, No Hepato-splenomegaly Extremities: No edema, Capillary Refill Less than 3 Seconds Skin: No rashes, No breakdown Musculoskeletal: No Tenderness to Palpation of Joints or Extremities Neurological: No focal neurological deficits, Motor Exam 5/5 strength throughout, Sensory exam intact to light touch and pain Psych/Mental Status: Normal Affect, Appropriate Weight / BMI Weight Weight: 156 lb 1.396 oz Body Mass Index (BMI) 23.0 ABG / Lab / Microbiology Data 10/28/23 05:18 10/28/23 05:18 D/C Instructions Discharge Diet: No restrictions Call your doctor if you observe: Fever of 101 or Higher, Shortness of breath, Dizziness, Fainting spells, Swelling in the ankles, Chest pain and Increased palpitations (irregular heartbeat) Meaningful Use Info Meaningful Use Meaningful Use Diagnoses (Choose all that apply): None applicable Ischemic Stroke Statin Dosing Therapy Reference: STATIN DOSE THERAPY REFERENCE: * Patients > 75 years receive moderate or high dose statin therapy. * Patients 75 years or YOUNGER should receive HIGH intensity statin dose unless contraindicated. You will be required to document reason for non-treatment if statin daily dose does not meet guidelines. HIGH DOSE STATIN THERAPY DAILY Atorvastatin > than or = to 40 mg Rosuvastatin > than or = to 20 mg Amlodipine + Atorvastatin > than or = to 2.5/40 mg Ezetimibe + Simvastatin 10/80 mg Simvastatin 80mg Discharge Plan Admission Admit Date/Time: 10/27/23 21:10 Attending Provider: Neri Kyle Primary Care Provider: Care Physician,No Primary Consulting Providers: Santosh Valenzuela Discharge Orders/Prescriptions Prescriptions: No Action NK Referrals / Follow Up: Care Physician,No Primary [Primary Care Provider] - Disposition Disposition (needs filled in before D/C Order can be placed): Home, Self Care Charges/Coding Visit Charges Inpatient E&M: 53463 Disch Hosp >30min
== END 2023-10-30 09:57 | disposition home or self-care (01) | DRG 897 ==
LOC: ED 20:59 → MS3 21:26
PROVIDERS: Admitting Provider Internal Medicine; Emergency Provider Emergency Medicine; Visit Provider Family Medicine
DX: F10.139 Alcohol abuse with withdrawal, unspecified (principal); F17.210 Nicotine dependence, cigarettes, uncomplicated; Y90.6 Blood alcohol level of 120-199 mg/100 ml
CPT/HCPCS: 36415; 80048; 80053; 80076; 80307; 82077; 83690; 83735; 85025; 85610; 85730; 99284; 99406; J7120; A4216